=== PATIENT | male | born 1975 | race Caucasian/White ===

== ENCOUNTER → 2018-07-04 | Outpatient (CLI) | payer BC ==
--- NOTE | 2018-07-04 13:13 | KCIC ---
CT scan of the head without contrast 07/04/2018 Clinical History: Thunderclap headache. Technique: Unenhanced, contiguous, 4.8 mm axial sections were obtained through the head. One or more of the following individualized dose reduction techniques were utilized for this study: 1. Automated exposure control. 2. Adjustment of the mA and/or kV according to patient size. 3. Use of iterative reconstruction technique. Findings: The ventricles and sulci are within normal limits in size and configuration. No focal area of abnormal attenuation is seen involving the brain parenchyma. No extra-axial fluid collection is seen. No skull fracture is seen. Impression: Negative study. Electronically signed by: Sriram Taylor MD (07/04/2018 1:09 PM) [id number]
== END | disposition home or self-care (01) ==
LOC: KCIC CT 12:47
PROVIDERS: ATTEND Family Medicine
DX: G44.53 Primary thunderclap headache (principal); I10 Essential (primary) hypertension
CPT/HCPCS: 70450

== ENCOUNTER → 2018-07-07 | Outpatient (CLI) | payer BC ==
[~2018-07-07] MED LIST: GADOBUTROL 10 MMOL/10 ML VIAL IV ONE
--- NOTE | 2018-07-07 14:05 | KCIC ---
MRI Brain with and without contrast History:Thunderclap headache, acute severe headache and head pain without exertion 5 days ago Technique: Multiplanar, multi sequential pre and postcontrast MR imaging was performed of the brain. Comparison: None Findings: There is no evidence of recent infarct or cytotoxic edema. The ventricles, sulci, and cisterns are within normal limits in size and configuration. There is no significant midline shift or extra-axial fluid collection. Tthere is nonenhancing 1.3 cm AP by 1.2 cm transverse focus of T2 and FLAIR hyperintense signal of the left parietal subcortical white matter extending to the cortical surface. This has somewhat convex margins. There is no nodular parenchymal or leptomeningeal enhancement. There is preservation of the major intracranial flow-voids at the skull base. The cerebellar tonsils are normal in location. There is no significant abnormality of the pineal gland or pituitary gland. There is patchy minimal ethmoid air cell and sphenoid sinus mucosal thickening. There is very minimal mucosal thickening of the limited pneumatized right frontal sinus. There is nonspecific increased CSF signal the optic nerve sheaths bilaterally The mastoid air cells are overall aerated, very minimal thickening bilaterally. There is preserved marrow signal of the clivus. Impression: 1. There is focus of nonenhancing T2 and FLAIR hyperintense signal abnormality of the left parietal subcortical white matter and cortex. This has somewhat convex margins. 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 There is no significant restricted diffusion suggestive of recent ischemia. MRA Brain History: Thunderclap headache, acute severe headache and head pain without exertion 5 days ago Technique: 3-D [id number] MR angiography was performed of the brain. Comparison: None Findings: Determination of any degree of stenosis is based on NASCET criteria. Both vertebral arteries constitute the basilar artery. 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 There is visualization segments of bilateral PICAs and right AICA, left AICA not seen. There are patent posterior communicating arteries bilaterally. There is visualization of the internal carotid arteries bilaterally at skull base. There is tortuosity of the visualized distal cervical internal carotid arteries bilaterally. No significant intracranial stenosis or aneurysm is identified. Impression: 1. No significant intracranial stenosis or aneurysm is identified. 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 Findings were discussed with nurse Garvin in the office of Dr. Hu 07/07/2018 at 1358. Electronically signed by: Flavio Robles MD (07/07/2018 2:00 PM) [facility]
== END | disposition home or self-care (01) ==
LOC: KCIC MRI 12:10
PROVIDERS: ATTEND Family Medicine
DX: G44.53 Primary thunderclap headache (principal); I10 Essential (primary) hypertension
CPT/HCPCS: 70544; 70553; A9585

== ENCOUNTER → 2018-10-19 | Outpatient (CLI) | payer BC ==
--- NOTE | 2018-10-19 16:29 | KCIC ---
MRI Brain with and without contrast History: Low-grade glioma Technique: Multiplanar, multi sequential pre and postcontrast MR imaging was performed of the brain. Comparison: 07/07/2018 Findings: There is a persistent focus of nonenhancing T2 and FLAIR hyperintense signal of the left parietal subcortical white matter extending near cortical surface, measures about 1.3 cm AP by about 1.1 cm transverse. Morphology and size are similar. There again has convex margins. This is not associated with enhancement. There is no nodular parenchymal or leptomeningeal enhancement. There is no new signal abnormality of the brain parenchyma. There is no new midline shift or extra-axial fluid collection. There is preservation of the major arterial intracranial flow voids at the skull base. There is patchy mild ethmoid air cell mucosal thickening. Mastoid air cells are aerated. Cerebellar tonsils are normal in location. There is preserved marrow signal of the clivus. There is no abnormality of pineal gland or pituitary gland. Impression: 1. There is unchanged, nonenhancing T2 and FLAIR hyperintense lesion of the left parietal lobe, again primary concern would be for a low-grade astrocytoma. Sequela of demyelination is considered less likely especially given isolated findings and location. Electronically signed by: Flavio Robles MD (10/19/2018 4:26 PM) [id number]
== END | disposition home or self-care (01) ==
LOC: KCIC MRI 15:26
PROVIDERS: ATTEND Neurological Surgery
DX: G93.89 Other specified disorders of brain (principal); C71.9 Malignant neoplasm of brain, unspecified
CPT/HCPCS: 70553; A9585